=== PATIENT | female | born 1975 ===

== ENCOUNTER 2017-06-13 18:34 | Emergency (ER) | payer BC ==
[2017-06-13 18:34] VITALS: BMI 32.9
[2017-06-13 18:43] VITALS: RESP 18
--- NOTE | 2017-06-13 19:15 | C.PDOC ---
Time Seen by Provider: 06/13/17 18:54 Chief Complaint (Nursing): Abdominal Pain History Per: Patient Onset/Duration Of Symptoms: Days (4), Intermittent Episodes Current Symptoms Are (Timing): Still Present Severity: Moderate Location Of Pain/Discomfort: Other (Right flank area) Quality Of Discomfort: "Pain" Alleviating Factors: None Additional History Per: Prior Records Past Medical History Reviewed: Historical Data, Nursing Documentation, Vital Signs Vital Signs: Last Vital Signs Temp 97.7 F 06/13/17 18:36 Pulse 73 06/13/17 18:36 Resp 18 06/13/17 18:36 BP 154/78 H 06/13/17 18:36 Pulse Ox 95 06/13/17 19:15 - Medical History PMH: Asthma, HTN, Kidney Stones Surgical History: Appendectomy Other Surgeries: Osteochondroma surgery. - [facility] Procedures URETERAL CATHETERIZATION (05/23/14) Family History: States: Unknown Family Hx - Social History Hx Tobacco Use: No Hx Alcohol Use: No Hx Substance Use: No - Immunization History Hx Tetanus Toxoid Vaccination: Yes Hx Influenza Vaccination: Yes Hx Pneumococcal Vaccination: No Review Of Systems Except As Marked, All Systems Reviewed And Found Negative. Constitutional: Negative for: Fever Cardiovascular: Negative for: Chest Pain Respiratory: Negative for: Shortness of Breath Gastrointestinal: Positive for: Nausea, Abdominal Pain, Diarrhea. Negative for : Vomiting Genitourinary: Negative for: Dysuria Musculoskeletal: Negative for: Neck Pain Neurological: Negative for: Weakness, Numbness Physical Exam - Physical Exam Appears: Non-toxic, No Acute Distress Skin: Normal Color, Warm, Dry, No Rash Head: Atraumatic, Normacephalic Eye(s): bilateral: Normal Inspection, PERRL, EOMI Oral Mucosa: Moist Neck: Normal ROM, Supple Gastrointestinal/Abdominal: Soft, Tenderness (mild, right flank area), No Distention, No Guarding, No Rebound Extremity: Normal ROM Neurological/Psych: Oriented x3, Normal Motor, Normal Sensation ED Course And Treatment O2 Sat by Pulse Oximetry: 95 Pulse Ox Interpretation: Normal Disposition Discussed With DrAllen: Charles Meyers Jr. Comment: He evaluated pt in the ED. He states pt can be discharged home and f/ up in his office. Doctor Will See Patient In The: ED Counseled Patient/Family Regarding: Studies Performed, Diagnosis, Need For Followup - Disposition Referrals: Charles Meyers Jr., MD [Staff Provider] - Disposition: HOME/ ROUTINE Disposition Time: 19:18 Condition: STABLE Additional Instructions: Follow up with Dr. Meyers for further evaluation and treatment. Return to the ER if you develop fever, vomiting, worsening of symptoms or if you have any other concerns. Instructions: Abdominal Hernia (DC) - Clinical Impression Clinical Impression: Right flank pain, Incisional hernia
[2017-06-13 19:21] VITALS: BP 156/76; PULSE 70; TEMP 98; O2SAT 98
== END 2017-06-13 19:23 | disposition home or self-care (01) ==
LOC: C.ER 18:34
DX: K43.2 Incisional hernia without obstruction or gangrene (principal); R10.9 Unspecified abdominal pain; I10 Essential (primary) hypertension

== ENCOUNTER 2017-06-14 18:49 | Observation (INO) | payer BC ==
[2017-06-14 18:49] VITALS: BMI 32.9
--- NOTE | 2017-06-14 19:18 | C.PDOC ---
History Of Present Illness 42 year old female is referred to the ED from the clinic for complains of 1 year of right sided lateral abdominal pain with a protruding hernia. Patient reports she had orthopedic surgery many years ago for osteochondroma on the right maikol crest, later developed a hernia defect in the area. Patient was seen by surgery yesterday and presents today with persistent pain. Patient denies injury, fall, trauma, weakness, numbness, nausea, vomit, diarrhea. Time Seen by Provider: 06/14/17 19:00 Chief Complaint (Nursing): Abdominal Pain History Per: Patient History/Exam Limitations: no limitations Onset/Duration Of Symptoms: Days Current Symptoms Are (Timing): Still Present Pain Scale Rating Of: 4 Location Of Pain/Discomfort: RUQ, RLQ Quality Of Discomfort: "Pain" Associated Symptoms: Back Pain Exacerbating Factors: None Alleviating Factors: None Recent travel outside of the [place]: No Additional History Per: Patient Abnormal Vaginal Bleeding: No Past Medical History Reviewed: Historical Data, Nursing Documentation, Vital Signs Vital Signs: Last Vital Signs Temp 98.2 F 06/14/17 20:54 Pulse 78 06/14/17 20:54 Resp 20 06/14/17 20:54 BP 164/78 H 06/14/17 20:54 Pulse Ox 96 06/14/17 20:54 - Medical History PMH: Asthma, HTN, Kidney Stones Surgical History: Appendectomy - [facility] Procedures URETERAL CATHETERIZATION (05/23/14) Family History: States: Unknown Family Hx - Social History Hx Tobacco Use: No Hx Alcohol Use: No Hx Substance Use: No - Immunization History Hx Tetanus Toxoid Vaccination: Yes Hx Influenza Vaccination: Yes Hx Pneumococcal Vaccination: No Review Of Systems Constitutional: Negative for: Fever, Chills Cardiovascular: Negative for: Chest Pain Respiratory: Negative for: Shortness of Breath Gastrointestinal: Positive for: Abdominal Pain. Negative for: Vomiting, Diarrhea, Constipation Musculoskeletal: Positive for: Back Pain Skin: Negative for: Rash Neurological: Negative for: Weakness, Numbness Physical Exam - Physical Exam Appears: Non-toxic, No Acute Distress Skin: Normal Color, Warm, Dry Head: Atraumatic, Normacephalic Eye(s): bilateral: Normal Inspection Nose: No Discharge Oral Mucosa: Moist Neck: Normal ROM, Supple Chest: Symmetrical Cardiovascular: Rhythm Regular, No Murmur Respiratory: Normal Breath Sounds, No Rales, No Rhonchi, No Wheezing Gastrointestinal/Abdominal: Soft, No Tenderness, No Guarding, No Rebound, Hernia (reducible large 10 x 4 cm right lateral abdomen ) Back: No CVA Tenderness, No Paraspinal Tenderness Extremity: Normal ROM, No Tenderness, No Swelling Neurological/Psych: Oriented x3, Normal Motor, Normal Sensation Gait: Steady ED Course And Treatment - Laboratory Results Result Diagrams: 06/14/17 20:23 06/14/17 20:23 ECG: Interpreted By Me, Viewed By Me ECG Rhythm: Sinus Rhythm Rate From EC (BPM) O2 Sat by Pulse Oximetry: 96 (ON RA) Pulse Ox Interpretation: Normal Medical Decision Making Medical Decision Making: Plan: * UA * Discussed case with vice president sales and marketing, patient will be admitted Disposition Doctor Will See Patient In The: Hospital Counseled Patient/Family Regarding: Studies Performed, Diagnosis - Disposition Disposition: HOSPITALIZED Disposition Time: 19:15 Condition: GOOD - Clinical Impression Clinical Impression: Abdominal wall hernia - Scribe Statement The provider has reviewed the documentation as recorded by the Scribcrystal Conroy All medical record entries made by the Sussyibcrystal were at my direction and personally dictated by me. I have reviewed the chart and agree that the record accurately reflects my personal performance of the history, physical exam, medical decision making, and the department course for this patient. I have also personally directed, reviewed, and agree with the discharge instructions and disposition.
[2017-06-14 19:33] LABS: HCG,QUALITATIVE URINE NEGATIVE (NEGATIVE)
[2017-06-14 19:36] LABS: SQUAMOUS EPITHIAL 6 /hpf (0-5); URINE BILIRUBIN NEGATIVE (NEGATIVE); URINE BLOOD 2+ (NEGATIVE); URINE CLARITY Hazy (Clear); URINE COLOR Yellow (YELLOW); URINE GLUCOSE (UA) NORMAL (Normal); URINE LEUKOCYTE ESTERASE NEG Leu/uL (Negative); URINE PROTEIN NEGATIVE (NEGATIVE)
[2017-06-14] MEDS ORDERED: HYDROmorphone 0.5 mg/0.5 ml ISec IVP PRN (19:47)
--- NOTE | 2017-06-14 20:05 | CP.PCM.HP ---
<CarlfriedaAlvin ruiz - Last Filed: 06/14/17 20:08> History of Present Illness - History of Present Illness History of Present Illness: CC: Abdominal Pain PMD: Dr. Hoang Full Code This patient is a 42yo F w/ a PMhx of nephrolithiasis, mild intermittent asthma , recently diagnosed HTN on lisinopril, who is coming in for right sided flank/ abdominal pain associated with 3-4 episodes of vomiting. The patient states it was sharp, stabbing, and around the site she had a recent surgery for osteochondroma. She is passing flatus, but her BM's have been somewhat off the past few days stating she has to strain more than typically to go. Pain is 7/10 , right sided, and stabbing in nature. She admits to mild fevers/chills and just "feeling off". 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, denies smoking, denies EtOH or illicit drug use Present on Admission - Present on Admission Any Indicators Present on Admission: No History of DVT/PE: No History of Uncontrolled Diabetes: No Urinary Catheter: No Decubitus Ulcer Present: No Past Patient History - Infectious Disease Hx of Infectious Diseases: None - Tetanus Immunizations Tetanus Immunization: Unknown - Past Medical History & Family History Past Medical History?: Yes - Past Social History Smoking Status: Never Smoked - CARDIAC Hx Hypertension: Yes - PULMONARY Hx Asthma: Yes - NEUROLOGICAL Hx Paralysis: No - HEENT Hx HEENT Problems: Yes (wears eyeglasses) - RENAL Hx Kidney Stones: Yes - ENDOCRINE/METABOLIC Hx Diabetes Mellitus Type 1: No Hx Diabetes Mellitus Type 2: No - HEMATOLOGICAL/ONCOLOGICAL Hx Blood Transfusions: No - MUSCULOSKELETAL/RHEUMATOLOGICAL Hx Falls: No - PSYCHIATRIC Hx Substance Use: No - SURGICAL HISTORY Hx Appendectomy: Yes - ANESTHESIA Hx Anesthesia: Yes Hx Anesthesia Reactions: No Hx Malignant Hyperthermia: No Meds Allergies/Adverse Reactions: Allergies Allergy/AdvReac Type Severity Reaction Status Date / Time No Known Allergies Allergy Verified 06/14/17 18:55 Physical Exam - Constitutional Appears: Non-toxic, No Acute Distress - Head Exam Head Exam: ATRAUMATIC, NORMAL INSPECTION - Eye Exam Eye Exam: EOMI, Normal appearance, PERRL - ENT Exam ENT Exam: Mucous Membranes Moist - Neck Exam Neck exam: Positive for: Full Rom. Negative for: Lymphadenopathy - Respiratory Exam Respiratory Exam: Clear to Auscultation Bilateral, NORMAL BREATHING PATTERN. absent: Rales, Rhonchi, Wheezes - Cardiovascular Exam Cardiovascular Exam: REGULAR RHYTHM, RRR, +S1, +S2. absent: Tachycardia, Rubs, Systolic Murmur - GI/Abdominal Exam GI & Abdominal Exam: Normal Bowel Sounds, Soft. absent: Organomegaly, Pulsatile Mass, Rebound, Rigid (multiple scars, well healed, from previous robitic and laparacopic surgeries ), Tenderness - Extremities Exam Extremities exam: Positive for: full ROM. Negative for: calf tenderness, pedal edema, tenderness - Back Exam Back exam: absent: CVA tenderness (L), CVA tenderness (R), muscle spasm, NORMAL INSPECTION, paraspinal tenderness, rash noted, tenderness - Neurological Exam Neurological exam: Alert, CN II-XII Intact, Oriented x3 - Psychiatric Exam Psychiatric exam: Normal Affect, Normal Mood Additional comments: pleasant - Skin Skin Exam: Warm Results - Vital Signs Recent Vital Signs: Last Vital Signs Temp 97.9 F 06/14/17 18:52 Pulse 82 06/14/17 18:52 Resp 20 06/14/17 18:52 BP 146/92 H 06/14/17 18:52 Pulse Ox 96 06/14/17 19:22 - Labs Labs: Laboratory Results - last 24 hr 06/14/17 19:25 Urine Color Yellow Urine Clarity Hazy Urine pH 5.0 Ur Specific [place] 1.027 Urine Protein Negative Urine Glucose (UA) Normal Urine Ketones Negative Urine Blood 2+ H Urine Nitrate Negative Urine Bilirubin Negative Urine Urobilinogen 2.0 H Ur Leukocyte Esterase Neg Urine WBC (Auto) 2 Urine RBC (Auto) 20 H Ur Squamous Epith Cells 6 H Urine HCG, Qual Negative Assessment & Plan - Assessment and Plan (Free Text) Assessment: 42yo F admitted for R Flank hernia Right Flank Hernia -Surgery; Dr. Maxwell; appreciate recs -please refer to CAT scan for full report and incidental findings mentioned -OR 06/15; NPO after midnight 06/14 -pain control as per surgery HTN -will hold HTN medications at this time -patient can resume lisinopril 5mg as outpatient IGT -patient has well controlled sugar in the hospital here -should f/u in 6 months with PCP for HbA1C and lifestyle modifications Incidental Ovarian Cyst -recommend outpatient transvaginal US Hematuria -will f/u urine culture -patient is asymptomatic at this time; no flank pain/dysuria/suprapubic pain -CT did not show any findings of nephrolithiasis Proph -SCD -GI prophylaxis not indicated Case discussed with Dr. Genoveva Wilkerson PGY2 Decision To Admit - Pt Status Changed To: Hospital Disposition Of: Observation - . Bed Request Type: Regular Admitting Physician: Jose Ashraf <Jeff Tomas - Last Filed: 06/15/17 06:12> Results - Vital Signs Recent Vital Signs: Last Vital Signs Temp 98.2 F 06/14/17 23:00 Pulse 85 06/14/17 23:00 Resp 20 06/14/17 23:00 BP 144/81 06/14/17 23:00 Pulse Ox 96 06/14/17 23:55 - Labs Result Diagrams: 06/14/17 20:23 06/14/17 20:23 Labs: Laboratory Results - last 24 hr 06/14/17 06/14/17 06/14/17 19:25 20:23 20:23 WBC 12.9 H RBC 4.21 Hgb 12.7 Hct 37.7 MCV 89.6 MCH 30.1 MCHC 33.6 RDW 13.7 Plt Count 401 H MPV 7.9 Neut % (Auto) 57.2 Lymph % (Auto) 28.2 [place] % (Auto) 7.7 Eos % (Auto) 5.6 H Baso % (Auto) 1.3 Neut # (Auto) 7.4 H Lymph # (Auto) 3.6 [place] # (Auto) 1.0 H Eos # (Auto) 0.7 Baso # (Auto) 0.2 PT 10.2 INR 0.9 APTT 32 Sodium Potassium Chloride Carbon Dioxide Anion Gap BUN Creatinine Est GFR ( Amer) Est GFR (Non-Af Amer) Random Glucose Calcium Total Bilirubin AST ALT Alkaline Phosphatase Total Protein Albumin Globulin Albumin/Globulin Ratio Urine Color Yellow Urine Clarity Hazy Urine pH 5.0 Ur Specific [place] 1.027 Urine Protein Negative Urine Glucose (UA) Normal Urine Ketones Negative Urine Blood 2+ H Urine Nitrate Negative Urine Bilirubin Negative Urine Urobilinogen 2.0 H Ur Leukocyte Esterase Neg Urine WBC (Auto) 2 Urine RBC (Auto) 20 H Ur Squamous Epith Cells 6 H Urine HCG, Qual Negative 06/14/17 20:23 WBC RBC Hgb Hct MCV MCH MCHC RDW Plt Count MPV Neut % (Auto) Lymph % (Auto) [place] % (Auto) Eos % (Auto) Baso % (Auto) Neut # (Auto) Lymph # (Auto) [place] # (Auto) Eos # (Auto) Baso # (Auto) PT INR APTT Sodium 140 Potassium 3.5 L Chloride 105 Carbon Dioxide 24 Anion Gap 15 BUN 17 Creatinine 0.7 Est GFR ( Amer) > 60 Est GFR (Non-Af Amer) > 60 Random Glucose 139 H Calcium 9.0 Total Bilirubin 0.3 AST 16 ALT 11 Alkaline Phosphatase 94 Total Protein 7.3 Albumin 3.7 Globulin 3.6 Albumin/Globulin Ratio 1.0 Urine Color Urine Clarity Urine pH Ur Specific [place] Urine Protein Urine Glucose (UA) Urine Ketones Urine Blood Urine Nitrate Urine Bilirubin Urine Urobilinogen Ur Leukocyte Esterase Urine WBC (Auto) Urine RBC (Auto) Ur Squamous Epith Cells Urine HCG, Qual Assessment & Plan - Date & Time Date: 06/15/17 (I have seen and examined the patient. I agree with the findings and plan of care as documented by Dr. Wilkerson. Patient with right flank hernia. Surgery on consult. Scheduled for surgery. Will medically optimize. Symptomatic treatment. History of hypertension. Hold home meds for now. Monitor for acute changes.) Time: 06:11 Attending/Attestation - Attestation I have personally seen and examined this patient.: Yes I have fully participated in the care of the patient.: Yes I have reviewed all pertinent clinical information: Yes
[2017-06-14] MEDS ORDERED: Albuterol HFA 90 mcg/actuation (8 g) INH PRN (20:14)
[2017-06-14 20:28] LABS: BASO # 0.2 K/uL (0.0-0.2); BASO % 1.3 % (0.0-2.0); EOS # 0.7 K/uL (0.0-0.7); EOS % 5.6 % (0.0-4.0); HEMOGLOBIN 12.7 g/dL (11.0-16.0); LYMPH # 3.6 K/uL (1.0-4.3); LYMPH % 28.2 % (20.0-40.0); MEAN CELL VOLUME 89.6 fL (81.0-99.0); MEAN CORPUSCULAR HEMOGLOBIN 30.1 pg (27.0-31.0); MEAN CORPUSCULAR HGB CONC 33.6 g/dL (33.0-37.0); MEAN PLATELET VOLUME 7.9 fL (7.2-11.7); MONO % 7.7 % (0.0-10.0); NEUT # 7.4 K/uL (1.8-7.0); NEUT % 57.2 % (50.0-75.0); RBC 4.21 Mil/uL (3.80-5.20); RED CELL DISTRIBUTION WIDTH 13.7 % (11.5-14.5); WHITE BLOOD COUNT 12.9 K/uL (4.8-10.8)
[2017-06-14 20:39] LABS: INR 0.9; PROTHROMBIN TIME 10.2 SECONDS (9.7-12.2)
[2017-06-14 20:40] LABS: ALBUMIN 3.7 g/dL (3.5-5.0); ALT/SGPT 11 U/L (9-52); AST/SGOT 16 U/L (14-36); BLOOD UREA NITROGEN 17 mg/dL (7-17); GFR AFRICAN-AMERICAN > 60; GFR NON-AFRICAN AMERICAN > 60
--- NOTE | 2017-06-14 21:23 | CP.PCM.CON ---
<Shameka Hernandez - Last Filed: 06/14/17 21:31> History of Present Illness - History of Present Illness History of Present Illness: General surgery consult note for Dr. Mallory-Shameka Hernandez, PGY-1 Pt S & E at bedside in ED. 42M w/PMH sig for right hip pain x 4-6 days. Pt reports sudden onset of right hip pain, severe, radiates to right flank, intermittent, aggravated by walking/ activity. Admits to SAHNI, diarrhea x 2 (2 days prior to evaluation), nausea, constipation, cough, F & C (mild). Denies emesis, changes in bladder habits, CP , SOB, other complaints. CT of ab w/ Right flank hernia, containing part of the right colon. No evidence of associated colonic obstruction or hernia incarceration. Leukocytosis of 12.9 PMH: nephrolithasis, asthma, HTN PSH: Right breast lumpectomy (benign), osteochrondroma of right hip s/p surgery , appendectomy All: NDKA SH: Denies ETOH, tobacco or illicit drug use Review of Systems - Review of Systems All systems: reviewed and no additional remarkable complaints except - Constitutional Constitutional: Chills, Fever, Headache - EENT Nose/Mouth/Throat: absent: Sore Throat - Cardiovascular Cardiovascular: absent: Chest Pain - Respiratory Respiratory: Cough - Gastrointestinal Gastrointestinal: Change in Bowel Habits, Diarrhea, Nausea, Other (Right lateral hip hernia). absent: Abdominal Pain, Vomiting - Genitourinary Genitourinary: absent: Change in Urinary Stream - Musculoskeletal Musculoskeletal: absent: Back Pain, Neck Pain - Integumentary Integumentary: absent: New Lesions - Psychiatric Psychiatric: absent: Change in Appetite Past Patient History - Infectious Disease Hx of Infectious Diseases: None - Tetanus Immunizations Tetanus Immunization: Unknown - Past Medical History & Family History Past Medical History?: Yes - Past Social History Smoking Status: Never Smoked - CARDIAC Hx Hypertension: Yes - PULMONARY Hx Asthma: Yes - NEUROLOGICAL Hx Paralysis: No - HEENT Hx HEENT Problems: Yes (wears eyeglasses) - RENAL Hx Kidney Stones: Yes - ENDOCRINE/METABOLIC Hx Diabetes Mellitus Type 1: No Hx Diabetes Mellitus Type 2: No - HEMATOLOGICAL/ONCOLOGICAL Hx Blood Transfusions: No - MUSCULOSKELETAL/RHEUMATOLOGICAL Hx Falls: No - PSYCHIATRIC Hx Substance Use: No - SURGICAL HISTORY Hx Appendectomy: Yes - ANESTHESIA Hx Anesthesia: Yes Hx Anesthesia Reactions: No Hx Malignant Hyperthermia: No Meds Allergies/Adverse Reactions: Allergies Allergy/AdvReac Type Severity Reaction Status Date / Time No Known Allergies Allergy Verified 06/14/17 18:55 - Medications Medications: Current Medications Acetaminophen (Tylenol 325mg Tab) 975 mg PO Q6 PRN PRN Reason: Fever >100.4 F Albuterol (Ventolin Hfa 90 Mcg/Actuation (8 G)) 1 puff INH RQ6 PRN PRN Reason: SOB Ketorolac Tromethamine (Toradol) 30 mg IVP Q6 PRN Ondansetron HCl (Zofran Inj) 4 mg IVP Q6H PRN PRN Reason: Nausea/Vomiting Potassium Chloride (K-Dur 20 Meq Er Tab) 40 meq PO ONCE ONE Stop: 06/15/17 21:13 Physical Exam - Constitutional Appears: Non-toxic, No Acute Distress - Head Exam Head Exam: ATRAUMATIC, NORMAL INSPECTION, NORMOCEPHALIC - Eye Exam Eye Exam: EOMI, Normal appearance - ENT Exam ENT Exam: Mucous Membranes Moist, Normal Exam - Neck Exam Neck exam: Positive for: Full Rom, Normal Inspection - Respiratory Exam Respiratory Exam: NORMAL BREATHING PATTERN - Cardiovascular Exam Cardiovascular Exam: REGULAR RHYTHM, +S1, +S2 - GI/Abdominal Exam GI & Abdominal Exam: Hernia (Right lateral abdominal wall above hip), Soft. absent: Distended, Firm, Guarding, Tenderness Additional comments: Multiple small linear well healed scars over abdomen - Extremities Exam Extremities exam: Negative for: normal inspection (right hip with linear, well healed scar ) - Neurological Exam Neurological exam: Alert, CN II-XII Intact, Oriented x3 - Psychiatric Exam Psychiatric exam: Normal Affect, Normal Mood - Skin Skin Exam: Dry, Intact, Normal Color, Warm Results - Vital Signs Recent Vital Signs: Last Vital Signs Temp 98.2 F 06/14/17 20:54 Pulse 78 06/14/17 20:54 Resp 20 06/14/17 20:54 BP 164/78 H 06/14/17 20:54 Pulse Ox 96 06/14/17 20:54 - Labs Result Diagrams: 06/14/17 20:23 06/14/17 20:23 Labs: Laboratory Results - last 24 hr 06/14/17 06/14/17 06/14/17 19:25 20:23 20:23 WBC 12.9 H RBC 4.21 Hgb 12.7 Hct 37.7 MCV 89.6 MCH 30.1 MCHC 33.6 RDW 13.7 Plt Count 401 H MPV 7.9 Neut % (Auto) 57.2 Lymph % (Auto) 28.2 [place] % (Auto) 7.7 Eos % (Auto) 5.6 H Baso % (Auto) 1.3 Neut # (Auto) 7.4 H Lymph # (Auto) 3.6 [place] # (Auto) 1.0 H Eos # (Auto) 0.7 Baso # (Auto) 0.2 PT 10.2 INR 0.9 APTT 32 Sodium Potassium Chloride Carbon Dioxide Anion Gap BUN Creatinine Est GFR ( Amer) Est GFR (Non-Af Amer) Random Glucose Calcium Total Bilirubin AST ALT Alkaline Phosphatase Total Protein Albumin Globulin Albumin/Globulin Ratio Urine Color Yellow Urine Clarity Hazy Urine pH 5.0 Ur Specific [place] 1.027 Urine Protein Negative Urine Glucose (UA) Normal Urine Ketones Negative Urine Blood 2+ H Urine Nitrate Negative Urine Bilirubin Negative Urine Urobilinogen 2.0 H Ur Leukocyte Esterase Neg Urine WBC (Auto) 2 Urine RBC (Auto) 20 H Ur Squamous Epith Cells 6 H Urine HCG, Qual Negative 06/14/17 20:23 WBC RBC Hgb Hct MCV MCH MCHC RDW Plt Count MPV Neut % (Auto) Lymph % (Auto) [place] % (Auto) Eos % (Auto) Baso % (Auto) Neut # (Auto) Lymph # (Auto) [place] # (Auto) Eos # (Auto) Baso # (Auto) PT INR APTT Sodium 140 Potassium 3.5 L Chloride 105 Carbon Dioxide 24 Anion Gap 15 BUN 17 Creatinine 0.7 Est GFR ( Amer) > 60 Est GFR (Non-Af Amer) > 60 Random Glucose 139 H Calcium 9.0 Total Bilirubin 0.3 AST 16 ALT 11 Alkaline Phosphatase 94 Total Protein 7.3 Albumin 3.7 Globulin 3.6 Albumin/Globulin Ratio 1.0 Urine Color Urine Clarity Urine pH Ur Specific [place] Urine Protein Urine Glucose (UA) Urine Ketones Urine Blood Urine Nitrate Urine Bilirubin Urine Urobilinogen Ur Leukocyte Esterase Urine WBC (Auto) Urine RBC (Auto) Ur Squamous Epith Cells Urine HCG, Qual Assessment & Plan - Assessment and Plan (Free Text) Assessment: 42F w/PMH sig for osteochondroma of right hip s/p surgery with right hip pain due to incarcerated lateral abdominal wall hernia Plan: Admit to medicine team Plan for OR in AM NPO pMN Pain control Anti-emetic consent in chart DW attending Mary, PGY-1 - Date & Time Date: 06/14/17 Time: 20:00 <Cisco Mallory - Last Filed: 06/18/17 18:05> Results - Vital Signs Recent Vital Signs: Last Vital Signs Temp 99.2 F 06/16/17 15:56 Pulse 98 H 06/16/17 15:56 Resp 20 06/16/17 15:56 BP 136/75 06/16/17 15:56 Pulse Ox 95 06/16/17 15:56 - Labs Result Diagrams: 06/17/17 11:32 06/17/17 11:32 Attending/Attestation - Attestation I have personally seen and examined this patient.: Yes I have fully participated in the care of the patient.: Yes I have reviewed all pertinent clinical information: Yes Notes (Text): Pt was seen and examined at bedside Agree with above note and assessment Pt with R flank pain for 3-4 day Right flank Incisional hernia and tenderness Labs and radiology reviewed Ass: Incisional hernia of right flank Plan : OR for Robotic Right flank hernia repair with mesh Consent PT/INR, Type and screen NPO, IVF Plan d.w pt in detail Risk and benefit explained in detail.
[2017-06-14] MEDS: oxyCODONE 5 mg Immediate Release Tab PO PRN (22:38)
[2017-06-15] MEDS: Lactated Ringer's 1,000 ML IV SCH ×3 (00:13→21:10)
[2017-06-15 06:45] LABS: BASO # 0.1 K/uL (0.0-0.2); BASO % 0.9 % (0.0-2.0); EOS # 0.6 K/uL (0.0-0.7); EOS % 6.3 % (0.0-4.0); LYMPH # 3.2 K/uL (1.0-4.3); LYMPH % 32.2 % (20.0-40.0); MEAN CELL VOLUME 89.6 fL (81.0-99.0); MEAN CORPUSCULAR HEMOGLOBIN 30.1 pg (27.0-31.0); MEAN CORPUSCULAR HGB CONC 33.6 g/dL (33.0-37.0); MEAN PLATELET VOLUME 7.9 fL (7.2-11.7); MONO # 0.8 K/uL (0.0-0.8); NEUT # 5.2 K/uL (1.8-7.0); NEUT % 52.6 % (50.0-75.0); RBC 3.97 Mil/uL (3.80-5.20); RED CELL DISTRIBUTION WIDTH 13.5 % (11.5-14.5); WHITE BLOOD COUNT 9.9 K/uL (4.8-10.8)
[2017-06-15 06:56] LABS: ALBUMIN 3.4 g/dL (3.5-5.0); ALT/SGPT 12 U/L (9-52); AST/SGOT 14 U/L (14-36); BLOOD UREA NITROGEN 18 mg/dL (7-17); CALCIUM 8.6 mg/dl (8.6-10.4); GFR AFRICAN-AMERICAN > 60; GFR NON-AFRICAN AMERICAN > 60
--- NOTE | 2017-06-15 07:32 | RAD ---
Chest x-ray single frontal view History: Preoperative evaluation. Comparison: None available. Findings: Mild venous congestion. Heart size within normal limits. Degenerative changes in the spine. Impression : Mild venous congestion.
[2017-06-15] MEDS: oxyCODONE 5 mg Immediate Release Tab PO PRN (07:39)
[2017-06-15] MEDS ORDERED: ceFAZolin 1 gm in NS 2 GM/200 ML BAG IVPB ONE (11:20)
[2017-06-15] MEDS ORDERED: Bupivacaine HCl 0.25% PF (30 ml) Inj ONE (11:20)
[2017-06-15] MEDS ORDERED: Lidocaine/Epinephrine 1% 1:100000 10 ML IJ ONE (11:21)
[2017-06-15] MEDS ORDERED: Propofol 10 mg/ml Inj (20 ML) ONE ×2 (11:54→15:04)
[2017-06-15] MEDS ORDERED: Midazolam 2 MG/2 ML VIAL ONE (11:54)
[2017-06-15] MEDS ORDERED: Neostigmine Methylsulfate 3mg/3ml Syringe IV ONE (15:32)
--- NOTE | 2017-06-15 15:56 | PCM.SURG1 ---
Surgeon's Initial Post Op Note - Surgeon's Notes Surgeon: Dr. Mallory Content Publisher: Dr. Ugalde PGY-3, Claudia Paez Type of Anesthesia: General Endo Anesthesia Administered By: Dr. Manley Pre-Operative Diagnosis: Incisional hernia Operative Findings: See operative report Post-Operative Diagnosis: Same Operation Performed: Robotic Incisional Hernia repair with mesh, lysis of adhesions Specimen/Specimens Removed: parts of hernia sac Estimated Blood Loss: EBL {In ML}: 10 Blood Products Given: N/A Drains Used: No Drains Post-Op Condition: Good Date of Surgery/Procedure: 06/15/17 Time of Surgery/Procedure: 15:56
[2017-06-15] MEDS: HYDROmorphone 0.5 mg/0.5 ml ISec IVP PRN ×5 (16:22→21:51)
--- NOTE | 2017-06-15 18:04 | CP.PCM.PN ---
<Hasmukh Jain - Last Filed: 06/15/17 18:00> Subjective - Date & Time of Evaluation Date of Evaluation: 06/15/17 Time of Evaluation: 18:01 - Subjective Subjective: Patient seen and examined at bedside complaining of some tenderness over the right flank no other complaints at this time Objective - Vital Signs/Intake and Output Vital Signs (last 24 hours): Temp Pulse Resp BP Pulse Ox 98. F 90 14 125/76 100 06/15/17 15:53 06/15/17 16:53 06/15/17 16:53 06/15/17 16:53 06/15/17 16:53 Intake and Output: 06/15/17 06/15/17 06:59 18:59 Intake Total 1500 Output Total 450 Balance 1050 - Medications Medications: Current Medications Acetaminophen (Tylenol 325mg Tab) 975 mg PO Q6 PRN PRN Reason: Fever >100.4 F Albuterol (Ventolin Hfa 90 Mcg/Actuation (8 G)) 1 puff INH RQ6 PRN PRN Reason: SOB Hydromorphone HCl (Dilaudid) 0.5 mg IVP Q4H PRN PRN Reason: Pain, severe (8-10) Lactated Ringer's (Lactated Ringer's) 1,000 mls @ 100 mls/hr IV .Q10H BETHEL Last Admin: 06/15/17 00:13 Dose: 100 mls/hr Ketorolac Tromethamine (Toradol) 30 mg IVP Q6 PRN PRN Reason: Pain, moderate (4-7) Ondansetron HCl (Zofran Inj) 4 mg IVP Q6H PRN PRN Reason: Nausea/Vomiting Oxycodone HCl (Oxycodone Immediate Release Tab) 5 mg PO Q6 PRN PRN Reason: Pain, severe (8-10) Last Admin: 06/15/17 07:39 Dose: 5 mg Potassium Chloride (K-Dur 20 Meq Er Tab) 40 meq PO ONCE ONE Stop: 06/15/17 21:13 - Labs Labs: 06/15/17 06:36 06/15/17 06:36 PT 10.2 SECONDS (9.7-12.2) 06/14/17 20:23 INR 0.9 06/14/17 20:23 APTT 32 SECONDS (21-34) 06/14/17 20:23 - Constitutional Appears: Well - Head Exam Head Exam: ATRAUMATIC, NORMAL INSPECTION, NORMOCEPHALIC - Eye Exam Eye Exam: EOMI, Normal appearance, PERRL Pupil Exam: NORMAL ACCOMODATION, PERRL - ENT Exam ENT Exam: Mucous Membranes Moist, Normal Exam - Neck Exam Neck Exam: Full ROM, Normal Inspection. absent: Lymphadenopathy - Respiratory Exam Respiratory Exam: Clear to Ausculation Bilateral, NORMAL BREATHING PATTERN - Cardiovascular Exam Cardiovascular Exam: REGULAR RHYTHM, +S1, +S2. absent: Murmur - GI/Abdominal Exam GI & Abdominal Exam: Soft, Normal Bowel Sounds. absent: Tenderness - Extremities Exam Extremities Exam: Full ROM, Normal Capillary Refill, Normal Inspection. absent : Joint Swelling, Pedal Edema - Back Exam Back Exam: NORMAL INSPECTION - Neurological Exam Neurological Exam: Alert, Awake, CN II-XII Intact, Normal Gait, Oriented x3 - Psychiatric Exam Psychiatric exam: Normal Affect, Normal Mood - Skin Skin Exam: Dry, Intact, Normal Color, Warm Assessment and Plan (1) Abdominal wall hernia Assessment & Plan: Surgery (Mohamud) OR today Patient tolerated procedure well D/c tomorrow if pain controlled and tolerating diet dilaudid for pain Status: Chronic (2) Asthma Assessment & Plan: history of asthma needs to be better controlled in outpatient setting as she uses her inhaler every day during the spring months continue ventolin inhaler here as needed Status: Chronic (3) Prophylactic measure Assessment & Plan: scd GI PPX not indicated at this time Status: Acute <Jose Ashraf - Last Filed: 07/13/17 14:51> Objective - Vital Signs/Intake and Output Vital Signs (last 24 hours): Temp Pulse Resp BP Pulse Ox 99.2 F 98 H 20 136/75 95 06/16/17 15:56 06/16/17 15:56 06/16/17 15:56 06/16/17 15:56 06/16/17 15:56 - Labs Labs: 06/17/17 11:32 06/17/17 11:32 PT 10.2 SECONDS (9.7-12.2) 06/14/17 20:23 INR 0.9 06/14/17 20:23 APTT 32 SECONDS (21-34) 06/14/17 20:23 Attending/Attestation - Attestation I have personally seen and examined this patient.: Yes I have fully participated in the care of the patient.: Yes I have reviewed all pertinent clinical information, including history, physical exam and plan: Yes Notes (Text): (1) Abdominal wall hernia- management per surgery (2) Asthma -- not acute exacerbation
[2017-06-15] MEDS: Oxycodone/Acetaminophen 5/325 mg Tab PO PRN (19:33)
[2017-06-15] MEDS ORDERED: Potassium Chloride 20 mEq ER Tab PO ONE (21:12)
--- NOTE | 2017-06-16 00:06 | CARD ---
APPROVED REPORT EKG Measurement Heart [id number] <Conclusion> Normal sinus rhythm Cannot rule out Anterior infarct, age undetermined Abnormal ECG
[2017-06-16] MEDS: Oxycodone/Acetaminophen 5/325 mg Tab PO PRN ×4 (00:19→20:18)
[2017-06-16 00:24] VITALS: RESP 20
[2017-06-16] MEDS: HYDROmorphone 0.5 mg/0.5 ml ISec IVP PRN ×3 (01:47→10:54)
[2017-06-16] MEDS: Lactated Ringer's 1,000 ML IV SCH (06:00)
[2017-06-16] MEDS: Docusate-Senna 50 mg-8.6 mg Tab PO SCH ×3 (09:19→17:58)
[2017-06-16 11:28] LABS: BASO # 0.1 K/uL (0.0-0.2); BASO % 0.4 % (0.0-2.0); EOS # 0.1 K/uL (0.0-0.7); EOS % 0.4 % (0.0-4.0); HEMOGLOBIN 11.8 g/dL (11.0-16.0); LYMPH # 2.6 K/uL (1.0-4.3); LYMPH % 17.6 % (20.0-40.0); MEAN CORPUSCULAR HEMOGLOBIN 30.6 pg (27.0-31.0); MEAN CORPUSCULAR HGB CONC 34.3 g/dL (33.0-37.0); MEAN PLATELET VOLUME 7.9 fL (7.2-11.7); MONO # 1.1 K/uL (0.0-0.8); MONO % 7.4 % (0.0-10.0); NEUT # 11.1 K/uL (1.8-7.0); NEUT % 74.2 % (50.0-75.0); RBC 3.85 Mil/uL (3.80-5.20); RED CELL DISTRIBUTION WIDTH 13.5 % (11.5-14.5)
--- NOTE | 2017-06-16 12:27 | CP.PCM.PN ---
<Blayne Ugaldeaf - Last Filed: 06/16/17 12:24> Subjective - Date & Time of Evaluation Date of Evaluation: 06/16/17 Time of Evaluation: 08:00 - Subjective Subjective: Surgery; Dr. Mallory Pt seen and examined. No acute overnight events. States she's feeling well this morning but has post-op pain on the R side of her hip. Tolerating diet and ambulating. Denies N/V, F/C. Objective - Vital Signs/Intake and Output Vital Signs (last 24 hours): Temp Pulse Resp BP Pulse Ox 98.9 F 97 H 20 151/85 H 93 L 06/16/17 07:00 06/16/17 07:00 06/16/17 07:00 06/16/17 07:00 06/16/17 07:05 Intake and Output: 06/16/17 06/16/17 06:59 18:59 Output Total 800 Balance -800 - Medications Medications: Current Medications Albuterol (Ventolin Hfa 90 Mcg/Actuation (8 G)) 1 puff INH RQ6 PRN PRN Reason: SOB Ondansetron HCl (Zofran Inj) 4 mg IVP Q6H PRN PRN Reason: Nausea/Vomiting Last Admin: 06/16/17 06:18 Dose: 4 mg Oxycodone/Acetaminophen (Percocet 5/325 Mg Tab) 1 tab PO Q4H PRN PRN Reason: Pain, moderate (4-7) Stop: 06/18/17 19:20 Last Admin: 06/16/17 08:53 Dose: 1 tab Senna/Docusate Sodium (Senokot S 50 Mg-8.6 Mg) 1 tab PO TID BETHEL Last Admin: 06/16/17 09:19 Dose: 1 tab - Labs Labs: 06/16/17 11:15 06/15/17 06:36 PT 10.2 SECONDS (9.7-12.2) 06/14/17 20:23 INR 0.9 06/14/17 20:23 APTT 32 SECONDS (21-34) 06/14/17 20:23 - Constitutional Appears: Well, No Acute Distress - ENT Exam ENT Exam: Mucous Membranes Moist - Respiratory Exam Respiratory Exam: NORMAL BREATHING PATTERN - Cardiovascular Exam Cardiovascular Exam: RRR - GI/Abdominal Exam GI & Abdominal Exam: Soft, Tenderness (around incision sites; C/D/I ). absent: Distended, Guarding - Neurological Exam Neurological Exam: Alert, Awake, Oriented x3 - Skin Skin Exam: Dry, Warm Assessment and Plan - Assessment and Plan (Free Text) Assessment: 42F s/p robotic incisional hernia repair; POD#1 Plan: - DC stoll & IVF - pain control - encourage ambulation - possible DC home later today - d/w Dr. Mohamud Ugalde, PGY-3 <Cisco Mallory - Last Filed: 06/18/17 18:06> Objective - Vital Signs/Intake and Output Vital Signs (last 24 hours): Temp Pulse Resp BP Pulse Ox 99.2 F 98 H 20 136/75 95 06/16/17 15:56 06/16/17 15:56 06/16/17 15:56 06/16/17 15:56 06/16/17 15:56 - Labs Labs: 06/17/17 11:32 06/17/17 11:32 PT 10.2 SECONDS (9.7-12.2) 06/14/17 20:23 INR 0.9 06/14/17 20:23 APTT 32 SECONDS (21-34) 06/14/17 20:23 Attending/Attestation - Attestation I have personally seen and examined this patient.: Yes I have fully participated in the care of the patient.: Yes I have reviewed all pertinent clinical information, including history, physical exam and plan: Yes Notes (Text): Pt was seen and examined at bedside Agree with above note and assessment Pt is improving clinically C.w [employer] Po percocet Stool softner OOB to walk DVT prophylaxis Plan d.w pt in detail Risk and benefit explained in detail.
[2017-06-16] MEDS ORDERED: oxyCODONE 5 mg Immediate Release Tab PO ONE ×2 (13:05→21:45)
[2017-06-16 13:24] VITALS: O2SAT 95
[2017-06-16 15:56] VITALS: BP 136/75; PULSE 98; TEMP 99.2
[2017-06-16] MEDS: Enoxaparin 40 mg Syringe SC SCH (16:01)
--- NOTE | 2017-06-16 21:01 | CP.PCM.PN ---
<Hasmukh Jain - Last Filed: 06/16/17 20:57> Subjective - Date & Time of Evaluation Date of Evaluation: 06/16/17 Time of Evaluation: 20:57 - Subjective Subjective: Patient seen and examined at bedside Still complaining of abdominal pain. Ambulating ok Tolerating diet Objective - Vital Signs/Intake and Output Vital Signs (last 24 hours): Temp Pulse Resp BP Pulse Ox 99.2 F 98 H 20 136/75 95 06/16/17 15:56 06/16/17 15:56 06/16/17 15:56 06/16/17 15:56 06/16/17 15:56 Intake and Output: 06/16/17 06/17/17 18:59 06:59 Intake Total 600 Output Total 600 Balance 0 - Medications Medications: Current Medications Albuterol (Ventolin Hfa 90 Mcg/Actuation (8 G)) 1 puff INH RQ6 PRN PRN Reason: SOB Enoxaparin Sodium (Lovenox) 40 mg SC DAILY [facility] Last Admin: 06/16/17 16:01 Dose: Not Given Ondansetron HCl (Zofran Inj) 4 mg IVP Q6H PRN PRN Reason: Nausea/Vomiting Last Admin: 06/16/17 06:18 Dose: 4 mg Oxycodone/Acetaminophen (Percocet 5/325 Mg Tab) 1 tab PO Q4H PRN PRN Reason: Pain, moderate (4-7) Stop: 06/18/17 19:20 Last Admin: 06/16/17 20:18 Dose: 1 tab Senna/Docusate Sodium (Senokot S 50 Mg-8.6 Mg) 1 tab PO TID [facility] Last Admin: 06/16/17 17:58 Dose: 1 tab - Labs Labs: 06/16/17 11:15 06/15/17 06:36 PT 10.2 SECONDS (9.7-12.2) 06/14/17 20:23 INR 0.9 06/14/17 20:23 APTT 32 SECONDS (21-34) 06/14/17 20:23 - Constitutional Appears: Well - Head Exam Head Exam: ATRAUMATIC, NORMAL INSPECTION, NORMOCEPHALIC - Eye Exam Eye Exam: EOMI, Normal appearance, PERRL Pupil Exam: NORMAL ACCOMODATION, PERRL - ENT Exam ENT Exam: Mucous Membranes Moist, Normal Exam - Neck Exam Neck Exam: Full ROM, Normal Inspection. absent: Lymphadenopathy - Respiratory Exam Respiratory Exam: Clear to Ausculation Bilateral, NORMAL BREATHING PATTERN - Cardiovascular Exam Cardiovascular Exam: REGULAR RHYTHM, +S1, +S2. absent: Murmur - GI/Abdominal Exam GI & Abdominal Exam: Soft, Normal Bowel Sounds. absent: Tenderness - Extremities Exam Extremities Exam: Full ROM, Normal Capillary Refill, Normal Inspection. absent : Joint Swelling, Pedal Edema - Back Exam Back Exam: NORMAL INSPECTION - Neurological Exam Neurological Exam: Alert, Awake, CN II-XII Intact, Normal Gait, Oriented x3 - Psychiatric Exam Psychiatric exam: Normal Affect, Normal Mood - Skin Skin Exam: Dry, Intact, Normal Color, Warm Assessment and Plan - Assessment and Plan (Free Text) Assessment: (1) Abdominal wall hernia Assessment & Plan: Surgery (Mohamud) Poss DC tomorrow dilaudid for pain Status: Chronic (2) Asthma Assessment & Plan: history of asthma needs to be better controlled in outpatient setting as she uses her inhaler every day during the spring months continue ventolin inhaler here as needed Status: Chronic (3) Prophylactic measure Assessment & Plan: scd GI PPX not indicated at this time Status: Acute <Jose Ashraf - Last Filed: 07/13/17 14:52> Objective - Vital Signs/Intake and Output Vital Signs (last 24 hours): Temp Pulse Resp BP Pulse Ox 99.2 F 98 H 20 136/75 95 06/16/17 15:56 06/16/17 15:56 06/16/17 15:56 06/16/17 15:56 06/16/17 15:56 - Labs Labs: 06/17/17 11:32 06/17/17 11:32 PT 10.2 SECONDS (9.7-12.2) 06/14/17 20:23 INR 0.9 06/14/17 20:23 APTT 32 SECONDS (21-34) 06/14/17 20:23 Attending/Attestation - Attestation I have personally seen and examined this patient.: Yes I have fully participated in the care of the patient.: Yes I have reviewed all pertinent clinical information, including history, physical exam and plan: Yes Notes (Text): (1) Abdominal wall hernia- management per surgery (2) Asthma -- not acute exacerbation
[2017-06-17] MEDS: Oxycodone/Acetaminophen 5/325 mg Tab PO PRN ×3 (01:37→09:19)
--- NOTE | 2017-06-17 09:04 | CP.PCM.PN ---
<Shameka Hernandez - Last Filed: 06/17/17 09:02> Subjective - Date & Time of Evaluation Date of Evaluation: 06/17/17 Time of Evaluation: 07:40 - Subjective Subjective: General surgery progress note for Dr. Mallory-Shameka Hernandez, PGY-1 Pt S & E at bedside. Pt reports pain well controlled, feeling better today. Is ambulating to void. Tolerating diet. Denies N & V, F & C. Objective - Vital Signs/Intake and Output Vital Signs (last 24 hours): Temp Pulse Resp BP Pulse Ox 99.2 F 98 H 20 136/75 95 06/16/17 15:56 06/16/17 15:56 06/16/17 15:56 06/16/17 15:56 06/16/17 15:56 Intake and Output: 06/17/17 06/17/17 06:59 18:59 Intake Total 500 Balance 500 - Medications Medications: Current Medications Albuterol (Ventolin Hfa 90 Mcg/Actuation (8 G)) 1 puff INH RQ6 PRN PRN Reason: SOB Enoxaparin Sodium (Lovenox) 40 mg SC DAILY [facility] Last Admin: 06/16/17 16:01 Dose: Not Given Ondansetron HCl (Zofran Inj) 4 mg IVP Q6H PRN PRN Reason: Nausea/Vomiting Last Admin: 06/16/17 06:18 Dose: 4 mg Oxycodone/Acetaminophen (Percocet 5/325 Mg Tab) 1 tab PO Q4H PRN PRN Reason: Pain, moderate (4-7) Stop: 06/18/17 19:20 Last Admin: 06/17/17 06:19 Dose: 1 tab Senna/Docusate Sodium (Senokot S 50 Mg-8.6 Mg) 1 tab PO TID [facility] Last Admin: 06/16/17 17:58 Dose: 1 tab - Labs Labs: 06/16/17 11:15 06/15/17 06:36 PT 10.2 SECONDS (9.7-12.2) 06/14/17 20:23 INR 0.9 06/14/17 20:23 APTT 32 SECONDS (21-34) 06/14/17 20:23 - Constitutional Appears: Non-toxic, No Acute Distress - Head Exam Head Exam: ATRAUMATIC, NORMAL INSPECTION, NORMOCEPHALIC - Eye Exam Eye Exam: EOMI, Normal appearance - ENT Exam ENT Exam: Mucous Membranes Moist, Normal Exam - Neck Exam Neck Exam: Full ROM, Normal Inspection - Respiratory Exam Respiratory Exam: NORMAL BREATHING PATTERN - Cardiovascular Exam Cardiovascular Exam: REGULAR RHYTHM, +S1, +S2 - GI/Abdominal Exam GI & Abdominal Exam: Soft, Tenderness (over surgical sites, mild). absent: Distended, Firm, Guarding, Rigid - Extremities Exam Extremities Exam: Normal Inspection - Neurological Exam Neurological Exam: Alert, Awake, CN II-XII Intact, Oriented x3 - Psychiatric Exam Psychiatric exam: Normal Affect, Normal Mood - Skin Skin Exam: Dry, Intact, Normal Color, Warm Assessment and Plan - Assessment and Plan (Free Text) Assessment: 42F POD#2 s/p robotic incisional hernia repair Plan: Cont pain control PRN Encourage IS use Encourage ambulation Cont diet Pt cleared for d/c home from surgical standpoint Will DW attending Mary, PGY-1 <Cisco Mallory B - Last Filed: 06/18/17 18:12> Objective - Vital Signs/Intake and Output Vital Signs (last 24 hours): Temp Pulse Resp BP Pulse Ox 99.2 F 98 H 20 136/75 95 06/16/17 15:56 06/16/17 15:56 06/16/17 15:56 06/16/17 15:56 06/16/17 15:56 - Labs Labs: 06/17/17 11:32 06/17/17 11:32 PT 10.2 SECONDS (9.7-12.2) 06/14/17 20:23 INR 0.9 06/14/17 20:23 APTT 32 SECONDS (21-34) 06/14/17 20:23 Attending/Attestation - Attestation I have personally seen and examined this patient.: Yes I have fully participated in the care of the patient.: Yes I have reviewed all pertinent clinical information, including history, physical exam and plan: Yes Notes (Text): Pt was seen and examined at bedside Agree with above note and assessment Pt is improving clinically Pt is passing gas and tolerating diet Can be DC home with PO percocet f/u as out pt Avoid lifting heavy weight for 6 weeks. Plan d.w pt in detail Risk and benefit explained in detail.
[2017-06-17] MEDS: Docusate-Senna 50 mg-8.6 mg Tab PO SCH ×2 (09:21→13:37)
--- NOTE | 2017-06-17 09:22 | CP.PCM.DIS ---
<Hasmukh Jain - Last Filed: 06/17/17 15:48> Provider - Provider Date of Admission: 06/14/17 20:58 Attending physician: Jose Ashraf MD Primary care physician: Diana Consults: Surgery: Mohamud Time Spent in preparation of Discharge (in minutes): 45 Hospital Course - Lab Results Lab Results: Micro Results 06/14/17 20:48 Urine,Clean Catch Urine Culture - Final No Growth (<1,000 CFU/ML) Most Recent Lab Values WBC 15.0 K/uL (4.8-10.8) H D 06/16/17 11:15 RBC 3.85 Mil/uL (3.80-5.20) 06/16/17 11:15 Hgb 11.8 g/dL (11.0-16.0) 06/16/17 11:15 Hct 34.2 % (34.0-47.0) 06/16/17 11:15 MCV 89.0 fL (81.0-99.0) 06/16/17 11:15 MCH 30.6 pg (27.0-31.0) 06/16/17 11:15 MCHC 34.3 g/dL (33.0-37.0) 06/16/17 11:15 RDW 13.5 % (11.5-14.5) 06/16/17 11:15 Plt Count 366 K/uL (130-400) 06/16/17 11:15 MPV 7.9 fL (7.2-11.7) 06/16/17 11:15 Neut % (Auto) 74.2 % (50.0-75.0) 06/16/17 11:15 Lymph % (Auto) 17.6 % (20.0-40.0) L 06/16/17 11:15 [place] % (Auto) 7.4 % (0.0-10.0) 06/16/17 11:15 Eos % (Auto) 0.4 % (0.0-4.0) 06/16/17 11:15 Baso % (Auto) 0.4 % (0.0-2.0) 06/16/17 11:15 Neut # (Auto) 11.1 K/uL (1.8-7.0) H 06/16/17 11:15 Lymph # (Auto) 2.6 K/uL (1.0-4.3) 06/16/17 11:15 [place] # (Auto) 1.1 K/uL (0.0-0.8) H 06/16/17 11:15 Eos # (Auto) 0.1 K/uL (0.0-0.7) 06/16/17 11:15 Baso # (Auto) 0.1 K/uL (0.0-0.2) 06/16/17 11:15 PT 10.2 SECONDS (9.7-12.2) 06/14/17 20:23 INR 0.9 06/14/17 20:23 APTT 32 SECONDS (21-34) 06/14/17 20:23 Sodium 139 mmol/L (132-148) 06/15/17 06:36 Potassium 4.0 mmol/L (3.6-5.2) 06/15/17 06:36 Chloride 103 mmol/L (98-107) 06/15/17 06:36 Carbon Dioxide 26 mmol/L (22-30) 06/15/17 06:36 Anion Gap 14 (10-20) 06/15/17 06:36 BUN 18 mg/dL (7-17) H 06/15/17 06:36 Creatinine 0.9 mg/dL (0.7-1.2) 06/15/17 06:36 Est GFR ( Amer) > 60 06/15/17 06:36 Est GFR (Non-Af Amer) > 60 06/15/17 06:36 Random Glucose 100 mg/dL (65-105) 06/15/17 06:36 Calcium 8.6 mg/dl (8.6-10.4) 06/15/17 06:36 Total Bilirubin 0.2 mg/dL (0.2-1.3) 06/15/17 06:36 AST 14 U/L (14-36) 06/15/17 06:36 ALT 12 U/L (9-52) 06/15/17 06:36 Alkaline Phosphatase 110 U/L (38-126) 06/15/17 06:36 Total Protein 6.7 g/dL (6.3-8.3) 06/15/17 06:36 Albumin 3.4 g/dL (3.5-5.0) L 06/15/17 06:36 Globulin 3.4 gm/dL (2.2-3.9) 06/15/17 06:36 Albumin/Globulin Ratio 1.0 (1.0-2.1) 06/15/17 06:36 Beta HCG, Quant < 2.39 mIU/ML 06/15/17 06:36 Urine Color Yellow (YELLOW) 06/14/17 19:25 Urine Clarity Hazy (Clear) 06/14/17 19:25 Urine pH 5.0 (5.0-8.0) 06/14/17 19:25 Ur Specific [place] 1.027 (1.003-1.030) 06/14/17 19:25 Urine Protein Negative mg/dL (NEGATIVE) 06/14/17 19: Urine Glucose (UA) Normal mg/dL (Normal) 06/14/17 19: Urine Ketones Negative mg/dL (NEGATIVE) 06/14/17 19:25 Urine Blood 2+ (NEGATIVE) H 06/14/17 19:25 Urine Nitrate Negative (NEGATIVE) 06/14/17 19:25 Urine Bilirubin Negative (NEGATIVE) 06/14/17 19:25 Urine Urobilinogen 2.0 mg/dL (0.2-1.0) H 06/14/17 19:25 Ur Leukocyte Esterase Neg [place]/uL (Negative) 06/14/17 19:25 Urine WBC (Auto) 2 /hpf (0-5) 06/14/17 19:25 Urine RBC (Auto) 20 /hpf (0-3) H 06/14/17 19:25 Ur Squamous Epith Cells 6 /hpf (0-5) H 06/14/17 19:25 Urine HCG, Qual Negative (NEGATIVE) 06/14/17 19:25 Blood Type O POSITIVE 06/15/17 10:59 Antibody Screen Negative 06/15/17 10:59 - Hospital Course Hospital Course: This patient is a 42yo F w/ a PMhx of nephrolithiasis, mild intermittent asthma , recently diagnosed HTN on lisinopril, who is coming in for right sided flank/ abdominal pain associated with 3-4 episodes of vomiting. The patient states it was sharp, stabbing, and around the site she had a recent surgery for osteochondroma. She is passing flatus, but her BM's have been somewhat off the past few days stating she has to strain more than typically to go. Pain is 7/10 , right sided, and stabbing in nature. She admits to mild fevers/chills and just "feeling off". She denies chest pain, SOB, abdominal distention, dysuria/ freq/urg or blood in the urine, and denies lower extemity pain/swelling patient was taken to the OR for hernia repair. Patient tolerated procedure well. Pain was controlled the following day and patient was discharge with instruction to follow up in the clinic in 2 weeks. Discharge Exam - Head Exam Head Exam: ATRAUMATIC, NORMAL INSPECTION, NORMOCEPHALIC - Eye Exam Eye Exam: EOMI, Normal appearance, PERRL Pupil Exam: NORMAL ACCOMODATION, PERRL - Respiratory Exam Respiratory Exam: Clear to PA & Lateral, UNREMARKABLE - Cardiovascular Exam Cardiovascular Exam: REGULAR RHYTHM - GI/Abdominal Exam GI & Abdominal Exam: Normal Bowel Sounds, Soft. absent: Distended, Tenderness, Unremarkable - Neurological Exam Neurological exam: Alert, CN II-XII Intact, Normal Gait, Oriented x3, Reflexes Normal - Psychiatric Exam Psychiatric exam: Normal Affect, Normal Mood - Skin Skin Exam: Dry, Intact, Normal Color, Warm Discharge Plan - Discharge Medications Prescriptions: Docusate Sodium/Sennosides A [Senokot S 50 MG-8.6 MG] 1 tab PO TID PRN 5 Days tab PRN Reason: Constipation Ketorolac Tromethamine [Toradol] 10 mg PO Q6H PRN 5 Days tab PRN Reason: Pain, Moderate (4-7) oxyCODONE/Acetaminophen [Percocet 5/325 mg Tab] 1 tab PO Q4H PRN 3 Days tab PRN Reason: Pain, Moderate (4-7) - Follow Up Plan Condition: GOOD Disposition: HOME/ ROUTINE Instructions: Ketorolac (Systemic), Abdominal Hernia (DC), Oxycodone and Acetaminophen, Docusate and Senna, Open Herniorrhaphy (DC), Laparoscopic Herniorrhaphy (DC), Inguinal Hernia (DC) Additional Instructions: Please call Dr. Mallory's office for a follow up appointment in 7-10 days after discharge. No heavy lifting for 4-6 weeks, nothing heavier than a gallon of milk. You may remove the bandaids on [place]. You have special tape underneath these, do not remove this, it will fall off on it's own. It is ok to shower with the special tape, washing gently with soap and water. If you have any questions, please call Dr. Ly's office. Please also follow up with Dr. Ortiz in her office in 2 weeks. Referrals: [facility] at [facility] [Outside] Cisco Mallory MD [Staff Provider] - <Jose Ashraf - Last Filed: 07/13/17 14:53> Provider - Provider Date of Admission: 06/14/17 20:58 Attending physician: Jose Ashraf MD Hospital Course - Lab Results Lab Results: Micro Results 06/14/17 20:48 Urine,Clean Catch Urine Culture - Final No Growth (<1,000 CFU/ML) Most Recent Lab Values WBC 12.6 K/uL (4.8-10.8) H 06/17/17 11:32 RBC 3.93 Mil/uL (3.80-5.20) 06/17/17 11:32 Hgb 12.1 g/dL (11.0-16.0) 06/17/17 11:32 Hct 35.2 % (34.0-47.0) 06/17/17 11:32 MCV 89.7 fL (81.0-99.0) 06/17/17 11:32 MCH 30.8 pg (27.0-31.0) 06/17/17 11:32 MCHC 34.4 g/dL (33.0-37.0) 06/17/17 11:32 RDW 13.3 % (11.5-14.5) 06/17/17 11:32 Plt Count 344 K/uL (130-400) 06/17/17 11:32 MPV 8.0 fL (7.2-11.7) 06/17/17 11:32 Neut % (Auto) 66.6 % (50.0-75.0) 06/17/17 11:32 Lymph % (Auto) 21.5 % (20.0-40.0) 06/17/17 11:32 [place] % (Auto) 8.9 % (0.0-10.0) 06/17/17 11:32 Eos % (Auto) 2.3 % (0.0-4.0) 06/17/17 11:32 Baso % (Auto) 0.7 % (0.0-2.0) 06/17/17 11:32 Neut # (Auto) 8.4 K/uL (1.8-7.0) H 06/17/17 11:32 Lymph # (Auto) 2.7 K/uL (1.0-4.3) 06/17/17 11:32 [place] # (Auto) 1.1 K/uL (0.0-0.8) H 06/17/17 11:32 Eos # (Auto) 0.3 K/uL (0.0-0.7) 06/17/17 11:32 Baso # (Auto) 0.1 K/uL (0.0-0.2) 06/17/17 11:32 PT 10.2 SECONDS (9.7-12.2) 06/14/17 20:23 INR 0.9 06/14/17 20:23 APTT 32 SECONDS (21-34) 06/14/17 20:23 Sodium 141 mmol/L (132-148) 06/17/17 11:32 Potassium 3.7 mmol/L (3.6-5.2) 06/17/17 11:32 Chloride 101 mmol/L (98-107) 06/17/17 11:32 Carbon Dioxide 31 mmol/L (22-30) H 06/17/17 11:32 Anion Gap 12 (10-20) 06/17/17 11:32 BUN 9 mg/dL (7-17) 06/17/17 11:32 Creatinine 0.7 mg/dL (0.7-1.2) 06/17/17 11:32 Est GFR ( Amer) > 60 06/17/17 11:32 Est GFR (Non-Af Amer) > 60 06/17/17 11:32 Random Glucose 117 mg/dL (65-105) H 06/17/17 11:32 Calcium 8.8 mg/dl (8.6-10.4) 06/17/17 11:32 Total Bilirubin 0.4 mg/dL (0.2-1.3) 06/17/17 11:32 AST 24 U/L (14-36) 06/17/17 11:32 ALT 11 U/L (9-52) 06/17/17 11:32 Alkaline Phosphatase 78 U/L (38-126) 06/17/17 11:32 Total Protein 7.3 g/dL (6.3-8.3) 06/17/17 11:32 Albumin 3.6 g/dL (3.5-5.0) 06/17/17 11:32 Globulin 3.7 gm/dL (2.2-3.9) 06/17/17 11:32 Albumin/Globulin Ratio 1.0 (1.0-2.1) 06/17/17 11:32 Beta HCG, Quant < 2.39 mIU/ML 06/15/17 06:36 Urine Color Yellow (YELLOW) 06/14/17 19:25 Urine Clarity Hazy (Clear) 06/14/17 19:25 Urine pH 5.0 (5.0-8.0) 06/14/17 19:25 Ur Specific [place] 1.027 (1.003-1.030) 06/14/17 19:25 Urine Protein Negative mg/dL (NEGATIVE) 06/14/17 19:25 Urine Glucose (UA) Normal mg/dL (Normal) 06/14/17 19:25 Urine Ketones Negative mg/dL (NEGATIVE) 06/14/17 19:25 Urine Blood 2+ (NEGATIVE) H 06/14/17 19:25 Urine Nitrate Negative (NEGATIVE) 06/14/17 19:25 Urine Bilirubin Negative (NEGATIVE) 06/14/17 19:25 Urine Urobilinogen 2.0 mg/dL (0.2-1.0) H 06/14/17 19:25 Ur Leukocyte Esterase Neg [place]/uL (Negative) 06/14/17 19:25 Urine WBC (Auto) 2 /hpf (0-5) 06/14/17 19:25 Urine RBC (Auto) 20 /hpf (0-3) H 06/14/17 19:25 Ur Squamous Epith Cells 6 /hpf (0-5) H 06/14/17 19:25 Urine HCG, Qual Negative (NEGATIVE) 06/14/17 19:25 Blood Type O POSITIVE 06/15/17 10:59 Antibody Screen Negative 06/15/17 10:59 Attending/Attestation - Attestation I have personally seen and examined this patient.: Yes I have fully participated in the care of the patient.: Yes I have reviewed all pertinent clinical information, including history, physical exam and plan: Yes Notes (Text): (1) Abdominal wall hernia- management per surgery (2) Asthma -- not acute exacerbation
[2017-06-17] MEDS: Enoxaparin 40 mg Syringe SC SCH (09:25)
[2017-06-17 11:49] LABS: BASO # 0.1 K/uL (0.0-0.2); BASO % 0.7 % (0.0-2.0); EOS # 0.3 K/uL (0.0-0.7); EOS % 2.3 % (0.0-4.0); HEMOGLOBIN 12.1 g/dL (11.0-16.0); LYMPH # 2.7 K/uL (1.0-4.3); LYMPH % 21.5 % (20.0-40.0); MEAN CELL VOLUME 89.7 fL (81.0-99.0); MEAN CORPUSCULAR HEMOGLOBIN 30.8 pg (27.0-31.0); MEAN CORPUSCULAR HGB CONC 34.4 g/dL (33.0-37.0); MONO # 1.1 K/uL (0.0-0.8); MONO % 8.9 % (0.0-10.0); NEUT # 8.4 K/uL (1.8-7.0); NEUT % 66.6 % (50.0-75.0); RBC 3.93 Mil/uL (3.80-5.20); RED CELL DISTRIBUTION WIDTH 13.3 % (11.5-14.5); WHITE BLOOD COUNT 12.6 K/uL (4.8-10.8)
[2017-06-17 12:07] LABS: ALBUMIN 3.6 g/dL (3.5-5.0); ALT/SGPT 11 U/L (9-52); AST/SGOT 24 U/L (14-36); BLOOD UREA NITROGEN 9 mg/dL (7-17); CALCIUM 8.8 mg/dl (8.6-10.4); GFR AFRICAN-AMERICAN > 60; GFR NON-AFRICAN AMERICAN > 60
--- NOTE | 2017-06-18 21:47 | OP ---
PROCEDURE DATE: 06/15/2017. PREOPERATIVE DIAGNOSES: 1. Right flank hernia. 2. Status post right iliac crest osteoma excision. 3. Possible extensive postoperative adhesions. PROCEDURES: 1. Robotic right flank incisional hernia repair with mesh. 2. Robotic extensive lysis of adhesion. 3. Robotic lateral abdominal wall reinforcement with mesh. SURGEON: Cisco Mallory MD. [employer]: [employer]ITY [employer]; and Carly Ugalde, PGY-2 resident. ANESTHESIA: General endotracheal tube anesthesia. ESTIMATED BLOOD LOSS: Around 20 mL. DRAINS: None. PATHOLOGY: Hernial sac and content was sent for the Pathology. COMPLICATIONS: None. INTRAOPERATIVE FINDINGS: The patient had right flank posterior incisional hernia just above the iliac crest, at the site of iliac crest osteoma removal and the size of the hernia was approximately 8 x 4 cm containing colon with peritoneal adhesions. Due to removal of Illiac creast osteoma, One margin of hernia was muscles and other margin was illiac crest. So there was no available margins to close defect with sutures. It took approximately 80-100 min extra for routine incisional hernia repair due to complexity of disease process. DESCRIPTION OF PROCEDURE: On intraoperative steps, this 42-year-old female who was diagnosed with incisional hernia at right flank just above the iliac crest status post iliac bone osteoma excision previously and the patient was consented for the robotic incisional hernia repair with mesh, possible open, brought to the OR, placed supine on the operating table. After induction of anesthesia, the patient was placed in the left lateral position and the right side up position and the right flank as well as the abdomen was prepped and draped in the usual sterile fashion. Using the Visiport technique, the peritoneal cavity was entered and then a pneumo was created and another three 8-mm robotic port was placed and robot was brought in, camera arm, as well as arm 1 and arm 2 was docked and first intestinal content was reduced and the peritoneum was dissected, extensive lysis of adhesion was done and the peritoneal sac was reduced back. Now, the anterior part of the defect had a muscle and posterior part had no muscles inferiorly due to the bone and the first anterior repair was done with #1 Prolene V-Loc suture and afterward the tissue reinforcement of the posterior part of the defect was done with GORE-LISA mesh. The GORE-LISA was fixed to the bone with tack up and the upper part of the GORE-LISA was sutured to the muscles with 2-0 Prolene sutures and after proper tissue reinforcement, the large 12 x 10 cm mesh was introduced and the mesh was placed and after proper implantation of the mesh, the peritoneum was sutured with 2-0 PDS V-Loc sutures and the patient was placed back into the supine position and extubated and sent to the postanesthesia care unit in stable condition. There was a proper hemostasis in each and every part of the procedure. The patient tolerated the procedure well. Count of the instrument and gauze was correct. Cisco Mallory MD MTDD
== END 2017-06-17 16:09 | disposition home or self-care (01) ==
LOC: C.ER 18:49 → C.9E 19:07 → C.5S 19:07 → INTOOBSV 19:07 → UNDOADMOB 19:07 → C.5S 20:58 → C.9E 20:58 → C.5S 06-15 12:01
PROVIDERS: ADMIT Internal Medicine; ATTEND Internal Medicine
DX: K43.2 Incisional hernia without obstruction or gangrene (principal); K66.0 Peritoneal adhesions (postprocedural) (postinfection); Z87.442 Personal history of urinary calculi; J45.20 Mild intermittent asthma, uncomplicated; I10 Essential (primary) hypertension; R73.02 Impaired glucose tolerance (oral); Z82.49 Family history of ischemic heart disease and other diseases of the circulatory system; N83.209 Unspecified ovarian cyst, unspecified side; R31.9 Hematuria, unspecified
CPT/HCPCS: 36415; 49329; 49654; 71045; 80053; 81001; 84702; 84703; 85025; 85610; 85730; 86850; 86900; 87086; 88304; 93005; 96374; 97116; 97162; 99284; C1781; G0378; G8978; G8979; J0131; J0690; J1170; J1885; J2250; J2405; J2704; J2710; J3010; J7120